=== PATIENT | male | born 1995 | race Caucasian/White ===

== ENCOUNTER 2016-10-08 13:18 | Emergency (ER) | payer BC, OTHER ==
[~2016-10-08] VITALS: Wt 91.5 kg
[2016-10-08] MEDS ORDERED: IBUPROFEN 600 MG TAB PO ONE (16:00)
--- NOTE | 2016-10-08 16:42 | RADRPT ---
PROCEDURE: XR Elbow. CLINICAL INDICATION: Fall, pain TECHNIQUE: AP, lateral and oblique views of the left elbow performed. COMPARISON: None. FINDINGS: There is displacement of the anterior fat pad and the posterior fat pad is also visualized indicatin g an elbow joint effusion. No definite fracture is identified. There is no dislocation. Joint spa kaushal appear intact. IMPRESSION: Elbow joint effusion without definite fracture identified, but occult fracture is not excluded. 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 RPTAT: VV .Carlos Shah MD, Date Time Electronically viewed and signed by .Carlos Shah MD, on 10/08/2016 16:42 .O/
--- NOTE | 2016-10-08 16:42 | RADRPT ---
PROCEDURE: XR Left Hand CLINICAL INDICATION: Fall TECHNIQUE: AP, oblique, and lateral radiographs were submitted. COMPARISON: None FINDINGS: Osseous structures: appear well mineralized and intact with no fracture or destructive process iden tified. Joint spaces: are well maintained, with no significant spurring, erosion or joint effusion evident. Soft tissues: appear unremarkable. IMPRESSION: Unremarkable left hand. Physician Patrick Date Time Electronically viewed and signed by Physician Patrick on 10/08/2016 16:42 /
--- NOTE | 2016-10-08 16:43 | RADRPT ---
PROCEDURE: XR Hip. CLINICAL INDICATION: Fall, head pain TECHNIQUE: AP and frog lateral views of the left hip were performed. COMPARISON: None. FINDINGS: No fracture is identified. The osseous structures are intact. The joint spaces are preserved. The soft tissues are unremarkable. IMPRESSION: Unremarkable left hip series. RPTAT: VV .Carlos Shah MD, Date Time Electronically viewed and signed by .Carlos Shah MD, on 10/08/2016 16:43 .O/
--- NOTE | 2016-10-08 16:45 | RADRPT ---
PROCEDURE: XR Left Wrist with Navicular View CLINICAL INDICATION: Fall TECHNIQUE: AP, lateral, and oblique views as well as a carpal navicular view were submitted. COMPARISON: None FINDINGS: Osseous structures: appear well mineralized and intact with no fracture or destructive process iden tified. Joint spaces: are well maintained with no significant erosions or spurring identified. Soft tissues: appear unremarkable. IMPRESSION: Unremarkable left wrist with navicular view. Physician Patrick Date Time Electronically viewed and signed by Cm Christie Physician on 10/08/2016 16:45 RH/
--- NOTE | 2016-10-08 16:52 | RADRPT ---
PROCEDURE: XR, left forearm. CLINICAL INDICATION: Pain. TECHNIQUE: AP and lateral views of the forearm were obtained. COMPARISON: None available. FINDINGS: There is normal mineralization and alignment. No fracture or dislocation is identified. There is j oint effusion of the elbow. The joint spaces are well maintained.. The surrounding soft tissues un remarkable. IMPRESSION: 1. Unremarkable x-rays of the forearm. 2. Joint effusion of the elbow. RPTAT: GG .Maurisio Nieves MD, MD Date Time Electronically viewed and signed by .Maurisio Nieves MD, MD on 10/08/2016 16:51 .Y/
[2016-10-08] MEDS ORDERED: HYDR-906 PO (17:06)
[2016-10-08] MEDS ORDERED: IBUP-1542 PO (17:06)
--- NOTE | 2016-10-08 18:28 | ERD ---
ER Documentation Chief Complaint Date/Time DATE: 10/08/16 TIME: 18:24 Chief Complaint LEFT ARM PAIN S/P FALL, NO KO HPI This is a 21-year-old male that presents to the ER because he fell down 8 stairs and now is complaining of left arm pain and left hip pain. Patient states that he has pain on his elbow, forearm, wrist, hands. He denies any shoulder pain and denies any back pain. He does admit to left hip pain that is nonradiating. He denies any femur pain, knee pain or ankle pain. She did not hit his head. He did not lose consciousness. He does not have any nausea or vomiting. She does admit to some numbness and tingling of his left hand. ROS 12 point review of systems was done, all negative except per HPI. Medications Home Meds Active Scripts Hydrocodone/Acetaminophen ([place] 5-325 Tablet) 1 Each Tablet, 1 TAB PO Q6H Y for PAIN, #20 TAB Prov:GARCIA BONILLA C 10/08/16 Ibuprofen* (Motrin*) 600 Mg Tab, 600 MG PO Q6, #30 TAB Prov:IRENEGARCIA C 10/08/16 Allergies Allergies: Coded Allergies: No Known Allergy (Unverified , 10/08/16) PMhx/Soc Medical and Surgical Hx: pt denies Medical Hx, pt denies Surgical Hx Hx Alcohol Use: No Hx Substance Use: No Hx Tobacco Use: No Smoking Status: Never smoker Physical Exam Vitals Vital Signs Date Time Temp Pulse Resp B/P Pulse Ox O2 Delivery O2 Flow Rate FiO2 10/08/16 13:55 97.5 79 17 142/75 98 Physical Exam GENERAL: The patient is well developed and appropriate for usual state of health , in no apparent distress. HEENT: Atraumatic. Conjunctivae are pink. Pupils equal, round, and reactive to light. Extraocular muscles are grossly intact. NECK: C-spine is soft and supple. There is no cervical lymphadenopathy. No step -offs no crepitus CHEST: Clear to auscultation bilaterally. There are no rales, wheezes or rhonchi. HEART: Regular rate and rhythm. No murmurs, clicks, rubs or gallops. BACK: No midline or flank tenderness. EXTREMITIES: Equal pulses bilaterally. There is no peripheral clubbing, cyanosis or edema Patient has some ecchymosis to the left hip he has full range of motion of his left hip. Patient does not have any tenderness to his femur. He has full range of motion of his knee. Left shoulder: Patient has full range of motion of his left shoulder it is nonpainful. Negative drop arm test. Left elbow: There is some swelling to the left elbow he is tender to palpation along the lateral epicondyles. Painful extension and flexion of the elbow. Patient is tender to palpation along forearm painful pronation supination. Left wrist: Patient does not have any pain with extension and flexion of the wrists. No snuffbox tenderness. Left hand: Normal strength and sensation. Radial ulnar and medial nerves are intact. Nontender to palpation NEURO: Alert and oriented. Cranial nerves II through XII are intact. Motor strength in all 4 extremities with 5/5 strength. Sensation grossly intact. Normal speech and gait. SKIN: The skin is warm and dry. Results 24 hrs Current Medications Medications (Trade) Dose Ordered Sig/Randell Route PRN Reason Start Time Stop Time Status Last Admin Dose Admin Ibuprofen (Motrin) 600 mg ONCE ONCE PO 10/08/16 16:00 10/08/16 16:01 DC 10/08/16 16:48 Procedures/MDM This is a 21-year-old male presents to the ER with left arm pain after falling down 8 stairs. At this time there is no evidence of fracture or dislocation. There was some swelling of the elbow patient was put in a sling for immobilization. He was neurovascularly intact before and after splint application. I was no evidence of fractures to the hip. Patient has full range of motion of his hip and is ambulating normally. Patient is afebrile and well-appearing. There is no evidence for intracranial pathology as patient did not hit his head and he is neurologically intact with no focal neurological deficits. Patient is to follow-up with his primary care doctor within 1-2 days return to ER sooner if symptoms worsen. My medical decision making was shared with the patient he understands and agrees with plan. Departure Diagnosis: Primary Impression: Fall Condition: Stable Patient Instructions: Fall, Mechanical Additional Instructions: Llame al doctor ROSAS y rosemary veronica DALE PARA DENTRO DE 1-2 JUAREZ.Dgale a la secretaria que nosotros le instruimos hacer esta dale.Avise o llame si mireles condicin se empeora antes de la dale. Regresa aqui si peor o no mejor. GARCIA BONILLA Oct 08, 2016 18:28
== END 2016-10-08 17:22 | disposition home or self-care (01) ==
LOC: FTE 13:18
DX: S59.912A Unspecified injury of left forearm, initial encounter (principal); S79.912A Unspecified injury of left hip, initial encounter; S59.902A Unspecified injury of left elbow, initial encounter; S69.92XA Unspecified injury of left wrist, hand and finger(s), initial encounter; W10.9XXA Fall (on) (from) unspecified stairs and steps, initial encounter; Y92.9 Unspecified place or not applicable
CPT/HCPCS: 73080; 73090; 73110; 73130; 73510; Z7502; Z7610

== ENCOUNTER 2016-10-13 11:15 | Emergency (ER) | payer BC ==
[~2016-10-13] VITALS: Ht 180.3 cm; Wt 91.5 kg
[~2016-10-13 11:15] MED LIST: HYDR-906 PO; IBUP-1542 PO
[2016-10-13 11:22] VITALS: Ht 180.3 cm; Wt 91.5 kg
[2016-10-13] MEDS ORDERED: KETOROLAC 30 MG INJ IM STA (13:18)
[2016-10-13] MEDS ORDERED: HYDROCODONE/APAP (10/325) TAB PO ONE (13:30)
--- NOTE | 2016-10-13 15:12 | ERD ---
ER Documentation Chief Complaint Date/Time DATE: 10/13/16 TIME: 15:08 Chief Complaint LEFT ARM PAIN/INJURY HPI This is a 21-year-old male who presents to the emergency department for left arm pain following injury. Patient states he fell 6 days ago and was seen here in the ED for evaluation. Patient states at that time they did x-rays and states there was not a fracture so they sent him home with pain medication. Xray left elbow reviewed by radiologist from 10/08/16 as elbow joint effusion without definite fracture identified, but occult fracture is not excluded. Consider CT for further evaluation.Patient states pain has worsened over the past 6 days. No reinjury. Pain is worse to left elbow and left wrist. Patient does have swelling to left arm. Patient has numbness and tingling to left hand however no loss of sensation. ROS All systems reviewed and are negative except as per history of present illness. Medications Home Meds Active Scripts Ibuprofen* (Motrin*) 800 Mg Tab, 800 MG PO Q6, #15 TAB Prov:ROSALIE CAMACHO NP 10/13/16 Hydrocodone/Acetaminophen ([place] 10-325 Tablet) 1 Each Tablet, 1 TAB PO Q6H Y for PAIN, #15 TAB Prov:ROSALIE CAMACHO [employer]LL [employer] MECH[employer]IC 10/13/16 Hydrocodone/Acetaminophen ([place] 5-325 Tablet) 1 Each Tablet, 1 TAB PO Q6H Y for PAIN, #20 TAB Prov:IRENE,GARCIA C 10/08/16 Ibuprofen* (Motrin*) 600 Mg Tab, 600 MG PO Q6, #30 TAB Prov:GARCIA BONILLA C 10/08/16 Allergies Allergies: Coded Allergies: No Known Allergy (Unverified , 10/08/16) PMhx/Soc Medical and Surgical Hx: pt denies Medical Hx, pt denies Surgical Hx Hx Alcohol Use: No Hx Substance Use: No Hx Tobacco Use: No Smoking Status: Unknown if ever smoked Physical Exam Vitals Vital Signs Date Time Temp Pulse Resp B/P Pulse Ox O2 Delivery O2 Flow Rate FiO2 10/13/16 11:22 98.3 68 19 150/84 95 Physical Exam Const: NAD, alert Head: Atraumatic Eyes: Normal Conjunctiva ENT: Normal External Ears, Nose and Mouth. Neck: Full range of motion..~ No meningismus. Resp: Clear to auscultation bilaterally Cardio: Regular rate and rhythm, no murmurs Abd: Soft, non tender, non distended. Normal bowel sounds Skin: No petechiae or rashes. skin is warm, dry and intact. Back: No midline or flank tenderness Ext: Limited mobility to left elbow. Unable to full flex or extend left elbow or wrist. No loss of sensation. ecchymosis to posterior aspect of left upper arm. Neur: Awake and alert Psych: Normal Mood and Affect Results 24 hrs Current Medications Medications (Trade) Dose Ordered Sig/Randell Route PRN Reason Start Time Stop Time Status Last Admin Dose Admin Ketorolac Tromethamine (Toradol) 30 mg ONCE STAT IM 10/13/16 13:18 10/13/16 13:20 DC 10/13/16 13:26 Acetaminophen/ Hydrocodone Bitart ([place] (10/325)) 1 tab ONCE ONCE PO 10/13/16 13:30 10/13/16 13:31 DC 10/13/16 13:25 Acetaminophen (Tylenol Tab) 500 mg STK-MED ONCE .ROUTE 10/13/16 22:34 10/13/16 22:35 DC Procedures/MDM ED COURSE: The patient was stable throughout ED course. I kept the patient and/or family informed of laboratory and diagnostic imaging results throughout the ED course. Imaging CT left upper extremity Patient: PARAG GRAHAM : 1995 Age: 21 Sex: M MR #: [id number] DOS: 10/13/16 1320 Ordering MD: ROSALIE CAMACHO NP Location: [facility] Room/Bed: PROCEDURE: CT left extremity without contrast CLINICAL INDICATION: Worsening wrist and elbow pain, status post fall 5 days ago. TECHNIQUE: A noncontrast CT of the left elbow, forearm, and wrist was performed. Coronal and sagittal reformats were generated. CTDIvol: 7.76 mGy. DLP: 444.43 mGy-cm. COMPARISON: Left elbow and wrist x-rays dated 10/08/2016. FINDINGS: There is a nondisplaced radial head fracture which extends to the articular surface. A small elbow joint effusion is noted. Bone mineralization is normal and there is no suspicious osseous lesion. There is subcutaneous edema overlying the dorsum of the elbow. IMPRESSION: 1. Nondisplaced radial head fracture which extends to the articular surface. 2. Small elbow joint effusion. 3. No wrist fracture. MDM: 21-year-old male presents emergency department for increased left arm pain after injury 6 days ago. Initially x-rays were done when patient first was seen which revealed no fracture per radiologist. However it was recommended to perform CT left upper extremity if patient continues to have pain or pain worsens. Patient given Toradol and Ermine on the ED for pain relief and CT left upper extremity was ordered. CT left upper extremity reviewed by radiologist as nondisplaced radial head fracture which extends to the articular surface. Small elbow joint effusion.No wrist fracture. Discussed findings with Dr. Schultz and we agree that patient is to be placed in a posterior long arm splint with sling and sent for orthopedic follow up care. When I went to reassess patient, patient is unable to be found in ER. Patient eloped. 2 attempts were made to call patient per number on his medical records and 2 voice mails were left for patient at 1830 and 1840. The number called was [phone]. Departure Diagnosis: Primary Impression: Radial head fracture Encounter type: subsequent encounter Fracture type: closed Fracture alignment: nondisplaced Laterality: left Condition: Stable ROSALIE CAMACHO NP Oct 13, 2016 15:12
--- NOTE | 2016-10-13 17:40 | RADRPT ---
PROCEDURE: CT left extremity without contrast CLINICAL INDICATION: Worsening wrist and elbow pain, status post fall 5 days ago. TECHNIQUE: A noncontrast CT of the left elbow, forearm, and wrist was performed. Coronal and sagi ttal reformats were generated. CTDIvol: 7.76 mGy. DLP: 444.43 mGy-cm. COMPARISON: Left elbow and wrist x-rays dated 10/08/2016. FINDINGS: There is a nondisplaced radial head fracture which extends to the articular surface. A small elbow j oint effusion is noted. Bone mineralization is normal and there is no suspicious osseous lesion. The re is subcutaneous edema overlying the dorsum of the elbow. IMPRESSION: 1. Nondisplaced radial head fracture which extends to the articular surface. 2. Small elbow joint effusion. 3. No wrist fracture. RPTAT: HTAR .Juan Luis Dupree MD, Date Time Electronically viewed and signed by .Juan Luis Dupree MD, on 10/13/2016 17:40 .R/
[2016-10-13] MEDS ORDERED: IBUP800T25 PO (17:52)
[2016-10-13] MEDS ORDERED: HYDR-902 PO (17:52)
[2016-10-13] MEDS ORDERED: ACETAMINOPHEN 500 MG TAB ONE (22:34)
== END 2016-10-13 17:55 | disposition left against medical advice (07) ==
LOC: FTE 11:15
DX: S52.125D Nondisplaced fracture of head of left radius, subsequent encounter for closed fracture with routine healing (principal); W13.2XXD Fall from, out of or through roof, subsequent encounter
CPT/HCPCS: 29105; 73200; 96372; 99285; J1885; Z7610